=== PATIENT | male | born 1995 | race Two or more races ===

== ENCOUNTER 2024-06-30 05:07 | Emergency (ER) | payer OTHER ==
[~2024-06-30] VITALS: Ht 182.9 cm; Wt 78.9 kg
[2024-06-30 05:12] VITALS: BP 138/77; TEMP 98.2; O2SAT 99
== END 2024-06-30 05:33 | disposition left against medical advice (07) ==
LOC: ER 05:08
DX: R10.9 Unspecified abdominal pain (principal); Z53.21 Procedure and treatment not carried out due to patient leaving prior to being seen by health care provider